=== PATIENT | male | born 1955 | race Caucasian/White ===

== ENCOUNTER 2017-08-20 09:05 | Inpatient (IN) | payer BC ==
[2017-07-28 11:41] VITALS: BMI 31.0
[2017-07-28 12:05] LABS: BASO % 0.5 %; BASO ABS # 0.02 K/uL (0-0.2); COMPLETE YES; EOS % 2.8 %; HEMATOCRIT 41.9 % (42-52); IG% 0.2 %; LYMPH % 25.3 %; MEAN CELL VOLUME 92.5 fL (80-100); MEAN CORPUSCULAR HEMOGLOBIN 31.3 pg (25-34); MEAN CORPUSCULAR HGB CONC 33.9 g/dl (32-36); MEAN PLATELET VOLUME 9.1 fL (7.4-10.4); NEUT % 62.2 %; PLATELET COUNT 175 K/uL (130-400); RED BLOOD COUNT 4.53 M/uL (4.7-6.1); WHITE BLOOD COUNT 4.34 K/uL (4.8-10.8)
--- NOTE | 2017-07-28 12:09 | PAT Medication Instructions ---
Service Date Jul 28, 2017. Current Home Medication List Epinephrine (Epipen), 0.3 MG IM UD PRN for bee stings Levothyroxine Sodium (Levothyroxine Sodium), 1 TAB PO QAM Lisinopril (Zestril), 0.5 TAB PO QAM Medication Instructions For Your Scheduled Surgery - Continue as directed: Epinephrine (Epipen), 0.3 MG IM UD PRN for bee stings - Hold the following medications the morning of surgery: Lisinopril (Zestril), 0.5 TAB PO QAM - Take the following medications the morning of surgery with a sip of water OTHERWISE NOTHING TO EAT OR DRINK AFTER MIDNIGHT: Levothyroxine Sodium (Levothyroxine Sodium), 1 TAB PO QAM If you have any questions please call us at [phone] or [phone] or [phone]
[2017-07-28 12:11] LABS: INR 0.9 (0.9-1.1); PARTIAL THROMBOPLASTIN RATIO 0.9
[2017-07-28 12:14] LABS: BUN/CREATININE RATIO 19.6 (10-20); CALCIUM 8.9 mg/dl (8.5-10.1); POTASSIUM 4.1 mmol/L (3.5-5.1)
--- NOTE | 2017-07-28 12:48 | DIAGNOSTIC IMAGING REPORT ---
TWO VIEW CHEST CLINICAL HISTORY: Preoperative examination. FINDINGS: PA and lateral chest radiographs are obtained. No prior studies are available for comparison at the time of dictation. The cardiomediastinal silhouette is unremarkable. The lungs and pleural spaces are clear. There is no pneumothorax. The bony thorax appears intact. Mild thoracic scoliosis is observed. IMPRESSION: No active disease in the chest. Electronically signed by: Phong Barclay M.D. 07/28/2017 12:47 PM Dictated Date/Time: 07/28/2017 12:46 PM
[2017-07-28 13:19] LABS: URINE APPEARANCE CLEAR (CLEAR); URINE BILIRUBIN NEG (NEG); URINE COLOR YELLOW; URINE NITRITE NEG (NEG); URINE SPECIFIC GRAVITY 1.022 (1.000-1.030); UROBILINOGEN NEG (NEG)
[2017-07-28 13:37] LABS: MANUAL MICROSCOPIC REQUIRED? NO; REVIEW REQ? NO
--- NOTE | 2017-08-19 07:25 | HISTORY & PHYSICAL EXAMINATION ---
DATE OF ADMISSION: 08/20/2017 CHIEF COMPLAINT: Primary osteoarthritis of the right knee. HISTORY OF PRESENT ILLNESS: Ameya is a pleasant 61-year-old male. He is complaining of several year history of increasing right knee pain. X-rays and clinical examination were diagnostic for primary osteoarthritis of the right knee. After failing years of conservative treatment including injections, anti-inflammatories and therapy, he has elected to proceed with a right total knee arthroplasty. PAST MEDICAL HISTORY: Significant for hypertension and hypothyroidism. PAST SURGICAL HISTORY: Denies. ALLERGIES: BEES. MEDICATIONS: Include Synthroid 25 mcg daily and lisinopril 5 mg daily. FAMILY HISTORY: Denies. SOCIAL HISTORY: He is , has 3 kids, has 1-2 drinks per week and he is very active. REVIEW OF SYSTEMS: He complains of right knee pain. All other pertinent review of systems are negative. PHYSICAL EXAMINATION: GENERAL: He is awake, alert and oriented x3. He is in no apparent distress. He is very pleasant. HEENT: Pupils are equal, round and reactive to light. Extraocular motion intact. Oral mucosa is pink and moist. HEART: Regular rate per radial pulse. LUNGS: Carey symmetrically bilaterally with no audible breath sounds. ABDOMEN: Soft, nontender, nondistended. MUSCULOSKELETAL: On physical examination of his right knee, he ambulates independently. He has trace swelling of the knee. He has good range of motion from 0-130 degrees. He has a lot of pain over the distal medial femoral condyle and over the medial joint line. There is moderate bony hypertrophy around the knee. IMAGING: X-rays of the right knee do show advanced osteoarthritis mostly involving the medial compartment. There is complete loss of joint space and osteophyte formation. IMPRESSION: Primary osteoarthritis of the right knee. PLAN: We will proceed with a right total knee arthroplasty. Postoperatively, he will be started on aspirin for DVT prophylaxis. He will likely stay in the hospital for 2 midnights before being discharged to home.
[~2017-08-20] VITALS: Ht 177.8 cm; Wt 98.9 kg
[2017-08-20] MEDS: TRANEXAMIC ACID INJ 1,000 MG in SYRINGE 0 ML IV SCH ×2 (06:30→11:21)
[~2017-08-20 09:05] MED LIST: ACETAMINOPHEN 500 MG TAB PO SCH; ATROPINE SULFATE 0.1 MG/ML 5ML SYR IV PRN; BUPIVACAINE 0.25% 30 ML VIAL ONE; BUPIVACAINE 0.5 % 5 MG/1 ML PF 10ML VIAL ONE; CEFAZOLIN 2000MG IV PUSH 10 ML IV SCH; EPP3/2 IM; EpHEDrine SULFATE INJ 50 MG/ML AMP IV PRN; FAMOTIDINE 20 MG TAB PO SCH; FENTANYL CITRATE INJ 50 MCG/1 ML 2 ML VIAL IV PRN; GABAPENTIN 300 MG CAP PO SCH; HYDROmorphone INJ 1 MG/ML SYR IV PRN; LACTATED RINGER'S 1000ML 1,000 ML IV SCH; LACTATED RINGER'S 1000ML 500 ML IV ONE; LACTATED RINGER'S 1000ML IV SCH; LEVO25TA5 PO; LISI-461 PO; ONDANSETRON INJ 2 MG/ML 2 ML VIAL IV PRN; PROMETHAZINE HCL INJ 12.5 MG in SODIUM CHLORIDE 0.9% 50ML 50 ML IV PRN; ROPIVACAINE 5MG/ML 30 ML 150 MG, BUPIVACAINE 0.5% MPF INJ 30 ML, EpINEphrine HCL INJ 0.... INFIL SCH
--- NOTE | 2017-08-20 09:25 | History & Physical Bridge Note ---
H&P Re-Evaluation Bridge Note: I have examined the patient, reviewed the History & Physical and in the interval since the performance of the History & Physical I have noted the following changes of clinical significance: No changes noted
[2017-08-20 09:36] VITALS: O2SAT 100; Ht 177.8 cm; Wt 98.9 kg
[2017-08-20] MEDS ORDERED: FENTANYL CITRATE INJ 50 MCG/1 ML 2 ML VIAL ONE (10:52)
[2017-08-20] MEDS ORDERED: MIDAZOLAM HCL 1 MG/ML 2ML VIAL ONE ×2 (10:52→12:31)
[2017-08-20] MEDS ORDERED: ORTHO JOINT ANESTHETIC ONE (12:04)
[2017-08-20] MEDS ORDERED: BACITRACIN 50000 UNIT VIAL ONE (12:04)
[2017-08-20] MEDS ORDERED: ONDANSETRON INJ 2 MG/ML 2 ML VIAL ONE (12:49)
[2017-08-20] MEDS ORDERED: PROPOFOL IV EMULSION 10 MG/ML 20 ML VIAL IV ONE (13:13)
--- NOTE | 2017-08-20 13:54 | [facility] Post Operative Brief Note ---
Immediate Operative Summary Operative Date Aug 20, 2017. Pre-Operative Diagnosis Right Knee Degenerative Joint Disease Post-Operative Diagnosis Same as preop Procedure(s) Performed Right Total Knee Arthroplasty Surgeon Dr. Hernandez Credit Operations Processor Surgeon(s) Luis Guzmán PA-C Estimated Blood Loss 20 ml Findings as above Specimens A. Right Knee Bone and Tissue Complication(s) None Disposition Recovery Room / PACU
[2017-08-20] MEDS ORDERED: EPINEPHRINE ADULT AUTO-INJECT 0.3 MG SYR IM PRN (14:00)
[2017-08-20] MEDS ORDERED: METOCLOPRAMIDE HCL INJ 5 MG/ML 2 ML VIAL IV PRN (14:00)
[2017-08-20] MEDS ORDERED: SOD PHOSPHATE/SOD BIPHOSPHATE ENEMA 132 ML BTL PR PRN (14:00)
[2017-08-20] MEDS ORDERED: MoRPHine SULFATE 2 MG/ML CARP IV PRN (14:00)
[2017-08-20] MEDS ORDERED: MAGNESIUM HYDROXIDE SUSP 30 ML UDC PO PRN (14:00)
[2017-08-20] MEDS ORDERED: ONDANSETRON INJ 2 MG/ML 2 ML VIAL IV PRN (14:00)
[2017-08-20] MEDS ORDERED: BISACODYL 10 MG SUPP PR PRN (14:00)
--- NOTE | 2017-08-20 14:45 | DIAGNOSTIC IMAGING REPORT ---
RIGHT KNEE 2 VIEWS History: Right total knee arthroplasty. Degenerative arthritis. Postop. FINDINGS: The patient is status post a right total knee arthroplasty. The hardware is intact. No fracture or dislocation. Skin paul and surgical drains are in place. IMPRESSION: Right total knee arthroplasty. No evidence for hardware complication. Electronically signed by: Ra Man M.D. 08/20/2017 2:43 PM Dictated Date/Time: 08/20/2017 2:42 PM
--- NOTE | 2017-08-20 15:15 | Anesthesiology Progress Note ---
Anesthesia Post Op Note Date & Time Aug 20, 2017 at 15:14 Vital Signs Pain Intensity: 0 Vital Signs Past 12 Hours Date Time Temp Pulse Resp B/P (MAP) Pulse Ox O2 Delivery O2 Flow Rate FiO2 08/20/17 15:00 72 18 123/82 99 Nasal Cannula 2 08/20/17 14:45 36.4 60 15 131/82 97 Nasal Cannula 2 08/20/17 14:35 73 16 145/76 99 Nasal Cannula 2 08/20/17 14:25 63 16 134/79 100 Oxymask 10 08/20/17 14:15 36.8 67 14 114/69 98 Oxymask 10 08/20/17 09:36 100 Room Air Notes Mental Status: alert / awake / arousable, participated in evaluation Pt Amnestic to Procedure: Yes Nausea / Vomiting: adequately controlled Pain: adequately controlled Airway Patency, RR, SpO2: stable & adequate BP & HR: stable & adequate Hydration State: stable & adequate Neuraxial Anesthesia: was administered, sensory block is resolving Anesthetic Complications: no major complications apparent
[2017-08-20 15:45] VITALS: BP 148/92; PULSE 69; TEMP 36.6; O2SAT 96
--- NOTE | 2017-08-20 16:03 | OPERATIVE REPORT ---
DATE OF OPERATION: 08/20/2017 PREOPERATIVE DIAGNOSIS: Primary osteoarthritis of the right knee. POSTOPERATIVE DIAGNOSIS: Same. PROCEDURE: Right total knee arthroplasty. SURGEON: Dr. Nathan Hernandez. EMT: Luis Guzmán PA-C, whose assistance was necessary for retraction and closure. ANESTHESIA: Spinal with a right adductor nerve block. COMPLICATIONS: None. CONDITION: Stable to PACU. IMPLANTS USED: I used a [employer] Vanguard right total knee arthroplasty system with a size 70 femur, a 75 tibia, a size 10 posterior stabilized poly and a 34 x 8.5 mm patella. All components were cemented with Palacos-G cement. INDICATIONS: Ameya is a pleasant 61-year-old male who presented to my office with chronic right knee pain. X-rays and clinical examination were diagnostic for primary osteoarthritis of the right knee. After failing conservative treatment, he elected to undergo a joint replacement. DESCRIPTION OF OPERATION AND FINDINGS: On 08/20/2017, he arrived at [facility] for the above procedure. He was seen in the preoperative holding area and the operative extremity was identified and signed. He was given a preoperative antibiotic, a spinal anesthetic and a right adductor nerve block. He was taken back to the operating room, laid on the table in supine position and put under basic sedation. The right knee was then prepped and draped in sterile fashion. Time-out was done and the patient and operative extremity was properly identified. A longitudinal incision was made directly over the patella. Dissection was taken down through the fascia and a medial parapatellar arthrotomy was used. The fat pad was left intact, the medial retinaculum was released and the knee was flexed. ACL and PCL and meniscus were then removed. A drill was then sent down the center of femoral canal, followed by an intramedullary janae. Off that janae, a distal femoral cutting block was placed. A 12 mm was resected off the distal femur at 5 degrees of valgus. A posterior referencing guide was then used to measure the distal femur and it measured to be a size 70. Two drill holes were placed in 3 degrees of external rotation and 4 in 1 cutting block was placed. Anterior, posterior and chamfer cuts were then made. A box cutting guide was then placed and the box was resected for the posterior stabilizing component. The proximal tibia was then exposed. A drill was sent down the center of the tibial canal followed by an intramedullary janae. Off the janae, a proximal tibial resection guide was placed and 2 mm was resected off the low medial side. The tibia measured to be a size 75, it was set in the appropriate rotation, drilled and then punched. The posterior aspect of the knee was then opened up and any soft tissue remnants were removed as well as any posterior osteophytes. Trial components were then placed, the knee was brought through a full range of motion and felt to be stable. The patella was then everted and 9 mm was resected off the posterior aspect of the patella. The patella measured to be a size 34 and 3 peg hole drills were placed. A trial patella was placed, the knee was brought through a full range of motion and felt to be stable. Trial complements removed. The knee was then irrigated and the final components were then cemented in place with Palacos-G cement. The surrounding soft tissues were then injected with 100 mL of orthopedic pain control cocktail. The joint was irrigated with 3 liters of normal saline solution with bacitracin. Two drains were placed. The extensor mechanism was closed with #2 FiberWire suture in the superior medial aspect and a Vicryl suture, both proximally and distally. The skin was then closed with 2-0 Vicryl, 3-0 V-Loc suture and paul. He was then placed in a soft compressive dressing and taken to the postanesthesia care unit in stable condition. He tolerated the procedure well. I attest to the content of the Intraoperative Record and any orders documented therein. Any exception s are noted below.
--- NOTE | 2017-08-20 16:05 | Discharge Instructions ---
Discharge Instructions Date of Service Aug 20, 2017. Admission Reason for Admission: Right Knee Degenerative Joint Disease Discharge Discharge Diagnosis / Problem: Right Total Knee Discharge Goals Goal(s): Decrease discomfort, Improve function Activity Recommendations Activity Limitations: as noted below . Instructions / Follow-Up Instructions / Follow-Up Activity and Therapy Recommendations: * If you are using [facility] then Physical Therapy will be provided until they feel you are ready to start Outpatient Physical Therapy. If you are not using a Home Health agency then Outpatient Physical Therapy should start about 3-5 days from your day of surgery. Therapy will last about 6-10 weeks * It is important not to put a pillow under your knee when you are relaxing or sleeping. It is just as important to make sure you are getting your knee perfectly straight as it is to regain your knee bend. * You were shown a series of exercises in the hospital. Do these exercises three times each day including the exercises you were shown in physical therapy. * Get up and walk several times each day. For the first four weeks, try not to stand or walk for more than one hour at a time. If you do stand or walk for more than one hour, you will not hurt anything, but your leg will likely swell. * As you feel comfortable, you may change from the walker or crutches to a cane and then to independent walking. Medications: * Narcotic You will likely be sent home from the hospital with a prescription for the narcotic pain medication that worked best throughout your stay. * Aspirin Most patients will be required to take Aspirin 325mg twice a day for 6 weeks after surgery. This is obtained [id number] and a prescription is not necessary. * Other medications may be prescribed for specific circumstances. If you have any questions, please call the office at . * Resume previous home medications unless otherwise instructed TEDs/Elastic Stockings: The white elastic stockings help limit swelling and prevent blood clots from forming in your legs.~ The more you wear them, the more they work. Wear them for six weeks. Showering: You may shower 5 days from the day of surgery. Let the soapy shower water run over the paul. Do not scrub or soak the incision. Things To Watch For: * Drainage from the incision site that occurs more than one week after your surgery. * Increased redness at the incision site. * Fever above 102 degrees Fahrenheit. * Unusual chest pain or shortness of breath. * Call [facility] at with any of the above problems Follow-Up Visit: Follow-up with Dr. Hernandez 2 weeks after your day of surgery. An appointment was probably scheduled when you signed-up for surgery in the office. If you have any questions call Office Instructions: More detailed instructions as well as Frequently Asked Questions were provided in a folder by our office when you signed-up for surgery. Please review these instructions when you get home. If you have any further questions or concerns, please feel free to call the office at [phone] Current Hospital Diet Patient's current hospital diet: Regular Diet Discharge Diet Recommended Diet: Regular Diet Procedures Procedures Performed: Right Total Knee Arthroplasty Pending Studies Studies pending at discharge: no Medical Emergencies . Who to Call and When: Medical Emergencies: If at any time you feel your situation is an emergency, please call [phone] immediately. . Non-Emergent Contact Non-Emergency issues call your: Surgeon Call Non-Emergent contact if: wound has increased drainage, wound has increased redness . "Provider Documentation" section prepared by Nathan Hernandez. . VTE Core Measure Inpt VTE Proph given/why not?: Other Anticoagulation (Aspirin 325 twice a day for 6 weeks)
[2017-08-20 16:15] VITALS: BP 145/88; PULSE 59; TEMP 36.7; O2SAT 97
[2017-08-20 17:15] VITALS: BP 157/95; PULSE 69; TEMP 36.7; O2SAT 100
[2017-08-20 18:26] VITALS: BP 157/94; PULSE 73; TEMP 36.6; O2SAT 100
[2017-08-20] MEDS: SODIUM CHLORIDE 0.9% 1000ML 1,000 ML IV SCH (19:21)
[2017-08-20] MEDS: ACETAMINOPHEN IV 1,000 MG in EMPTY BAG 0 ML IV SCH (19:22)
[2017-08-20] MEDS: KETOROLAC TROMETHAMINE 30 MG/ML VIAL IV. SCH (19:23)
[2017-08-20] MEDS: CEFAZOLIN IV 2,000 MG in SYRINGE 0 ML IV SCH (19:44)
[2017-08-20] MEDS ORDERED: SENNA 8.6 MG TAB PO SCH (21:00)
[2017-08-20] MEDS: ASPIRIN 325 MG ECTAB PO SCH (21:39)
[2017-08-20] MEDS: DOCUSATE SODIUM 100 MG CAP PO SCH (21:39)
[2017-08-20 22:50] VITALS: BP 122/72; PULSE 58; TEMP 36.8; O2SAT 98
[2017-08-21] MEDS: ACETAMINOPHEN IV 1,000 MG in EMPTY BAG 0 ML IV SCH ×2 (00:28→07:16)
[2017-08-21] MEDS: KETOROLAC TROMETHAMINE 30 MG/ML VIAL IV. SCH ×3 (00:28→11:37)
[2017-08-21 03:17] VITALS: BP 131/82; PULSE 63; TEMP 36.6; O2SAT 99
[2017-08-21] MEDS: SODIUM CHLORIDE 0.9% 1000ML 1,000 ML IV SCH ×2 (03:34→09:54)
[2017-08-21] MEDS: CEFAZOLIN IV 2,000 MG in SYRINGE 0 ML IV SCH (03:34)
[2017-08-21] MEDS ORDERED: LEVOTHYROXINE 25 MCG TAB PO SCH (06:00)
[2017-08-21 06:06] LABS: HEMATOCRIT 38.2 % (42-52); MEAN CORPUSCULAR HEMOGLOBIN 31.6 pg (25-34); MEAN CORPUSCULAR HGB CONC 34.3 g/dl (32-36); MEAN PLATELET VOLUME 9.2 fL (7.4-10.4); PLATELET COUNT 154 K/uL (130-400); RED BLOOD COUNT 4.15 M/uL (4.7-6.1); WHITE BLOOD COUNT 8.69 K/uL (4.8-10.8)
[2017-08-21 06:39] LABS: BUN/CREATININE RATIO 18.5 (10-20); CALCIUM 8.4 mg/dl (8.5-10.1); CREATININE 0.96 mg/dl (0.60-1.40)
[2017-08-21] MEDS: DOCUSATE SODIUM 100 MG CAP PO SCH (07:16)
[2017-08-21] MEDS: ASPIRIN 325 MG ECTAB PO SCH (07:18)
[2017-08-21] MEDS: OXYCODONE HCL IR 5 MG TAB (IMMEDIATE RELEASE) PO PRN ×2 (07:22→12:38)
[2017-08-21] MEDS ORDERED: RXC5 PO (07:41)
[2017-08-21] MEDS ORDERED: ASPEC325 PO (07:41)
--- NOTE | 2017-08-21 08:02 | PROGRESS NOTE ---
DATE: 08/21/2017 CHIEF COMPLAINT: Status post right total knee arthroplasty, postop day #1. PROGRESS: Ameya was seen and examined at bedside today. Overall, he is doing very well. He has a very little pain in his knee. He has been up and ambulating to the bathroom. He has no other complaints. PHYSICAL EXAMINATION: RIGHT KNEE: He is lying with his knee in full extension. He has active dorsiflexion and plantarflexion of his right ankle and sensation is intact throughout. The drain has been pulled because it stopped suction and the dressing is clean and dry. LABORATORY DATA: He has an H&H today of 13.1 and 38.2. His glucose is 112. His vital signs are all stable on room air. He is voiding on his own. X-rays postoperatively of the right knee show the prosthesis to be in anatomical alignment without any evidence of fracture, dislocation or loosening. IMPRESSION: Status post right total knee arthroplasty, postop day #1. PLAN: At this point, he is doing well. He is on aspirin for DVT prophylaxis. He will be seen by physical therapy today. If he is feeling well later this afternoon, he can be discharged to home on oral pain medications.
[2017-08-21 08:20] VITALS: BP 163/103; PULSE 82; TEMP 36.8; O2SAT 98
[2017-08-21] MEDS ORDERED: MULTIVITAMIN TAB PO SCH (09:00)
[2017-08-21] MEDS ORDERED: LISINOPRIL 5 MG TAB PO SCH (09:00)
[2017-08-21 10:31] VITALS: BP 163/103; PULSE 82; TEMP 36.8; O2SAT 98
--- NOTE | 2017-08-22 09:47 | DISCHARGE SUMMARY ---
DISCHARGE DIAGNOSIS: Primary osteoarthritis of the right knee. PROCEDURE: Right total knee arthroplasty on 08/20/[address] Nathan Hernandez. DISCHARGE INSTRUCTIONS: 1. Aspirin 325 mg twice a day for 6 weeks. 2. NIXON hose stockings for 6 weeks. 3. Oxycodone 5-10 mg every 4 hours as needed for pain. 4. May shower 5 days from the day of surgery. 5. Start physical therapy this week. 6. Follow up with Dr. Hernandez in 2 weeks. 7. Call the office of Dr. Hernandez with any questions or concerns. 8. Continue Synthroid 25 mcg daily. 9. Continue Zestril 5 mg daily. HOSPITAL COURSE: Ameya is a pleasant 61-year-old male who presented to my office with chronic right pain. X-rays and clinical examination were diagnostic for primary osteoarthritis of the right knee. After failing extensive conservative treatment, he elected to undergo a right total knee arthroplasty. On 08/20/2017, he arrived at [facility] and underwent a right knee replacement without complication. He had a spinal anesthetic and a right adductor nerve block. Postoperatively, he was started on aspirin 325 mg twice a day for DVT prophylaxis and discharged to general orthopedic floor. His hospital course was uneventful. On postop day #1, his H&H was stable at 13.1 and 38.2. His pain was well controlled. He was able to participate well with physical therapy. Later in the afternoon, he was feeling well. So, he was subsequently discharged to home with oral pain medications, aspirin and the above instructions.
== END 2017-08-21 12:41 | disposition home health service (06) | DRG 470 ==
LOC: C.ACU 09:05 → C.3E 09:45 → ENRESERV 14:56
PROVIDERS: ADMIT Orthopaedic Surgery; ATTEND Orthopaedic Surgery
PROC: 0SRC0J9 Replacement of Right Knee Joint with Synthetic Substitute, Cemented, Open Approach (ICD-10-PCS; principal; 2017-08-20 11:30)
DX: M17.11 Unilateral primary osteoarthritis, right knee (principal); I10 Essential (primary) hypertension; E03.9 Hypothyroidism, unspecified; Z79.899 Other long term (current) drug therapy

== ENCOUNTER 2024-04-10 09:06 | Inpatient (IN) ==
--- NOTE | 2024-03-13 10:55 | PAT Medication Instructions ---
Medication Instructions Date of Service March 13, 2024 Home Medications acetaminophen 500 mg tablet 500 mg PO Q6H PRN hydrochlorothiazide 12.5 mg tablet 12.5 mg PO QAM ibuprofen 200 mg tablet 600 mg PO BID PRN levothyroxine 25 mcg tablet 25 mcg PO QAM lisinopril 40 mg tablet 40 mg PO QAM omeprazole 20 mg capsule,delayed release 20 mg PO DAILY PRN Continue as directed omeprazole 20 mg capsule,delayed release 20 mg PO DAILY PRN(if needed) ASK your surgeon for instructions ibuprofen 200 mg tablet 600 mg PO BID PRN DO NOT take the morning of surgery hydrochlorothiazide 12.5 mg tablet 12.5 mg PO QAM lisinopril 40 mg tablet 40 mg PO QAM Take morning of surgery With a small sip of water, OTHERWISE NOTHING TO EAT OR DRINK AFTER MIDNIGHT: acetaminophen 500 mg tablet 500 mg PO Q6H PRN(if needed) levothyroxine 25 mcg tablet 25 mcg PO QAM Take evening before surgery acetaminophen 500 mg tablet 500 mg PO Q6H PRN(if needed) Other Notes If you have any questions please call us at [phone] or [phone] or [phone] or [phone]
--- NOTE | 2024-03-16 08:26 | Anesthesiology Consultation ---
Date of Service March 16, 2024 Assessment & Plan (1) Encounter for pre-operative examination: - Case discussed in detail with Dr. Martell who advised nothing additional needed prior to surgery. Chart Review Chart Review: Acceptable Risk for Surgery and Patient seen in Pre Admission Testing Teaching & Discussion Pre-Anesthesia Teaching/Discussion Notes: Instructed NPO after midnight before surgery, except medications with 15 cc of water. Medication instructions provided according to the PAT guidelines. History Surgery Operation Date: 04/10/24 12:00 Proposed Procedures p Revision Right Total Knee Arthroplasty - Nathan Hernandez DO Height/Weight Height: 5 ft 10 in Weight: 99.9 kg Allergies Allergy/AdvReac Type Severity Reaction Status Date / Time No Known Drug Allergies Allergy Unknown Verified 03/13/24 07:40 BEE STINGS Allergy Unknown passed out Uncoded 03/13/24 07:40 with a multiple sting event Medications Home Medications Medication Instructions Recorded Confirmed Last Taken acetaminophen 500 mg tablet 500 mg PO Q6H PRN Pain 03/13/24 03/13/24 Unknown hydrochlorothiazide 12.5 mg tablet 12.5 mg PO QAM 03/13/24 03/13/24 Unknown ibuprofen 200 mg tablet 600 mg PO BID PRN Pain 03/13/24 03/13/24 Unknown levothyroxine 25 mcg tablet 25 mcg PO QAM 03/13/24 03/13/24 Unknown lisinopril 40 mg tablet 40 mg PO QAM 03/13/24 03/13/24 Unknown omeprazole 20 mg capsule,delayed 20 mg PO DAILY PRN Heartburn 03/13/24 03/13/24 Unknown release Past Medical History Medical History (Updated 03/16/24 @ 08:30 by Marylu Merino PA-C) GERD (gastroesophageal reflux disease) controlled, stable per pt Hx MRSA infection (2021) left arm wound post op ORIF Hx of colonic polyps Hypertension controlled, stable per pt Hypothyroidism Osteoarthritis Patient denies h/o stroke, seizures, heart attack, heart failure, DM, blood clots/DVTs or blood transfusions. Exercise / Class Metabolic Activity II 4-5 Yardwork/Stairs/Walk up hill (denies chest discomfort or shortness of breath with one flight of stairs) Past Family History Family History Other No family history of adverse response to anesthesia Past Surgical History Surgical History History of colonoscopy History of open reduction and internal fixation (ORIF) procedure (2021) left arm with hardware History of tonsillectomy History of total right knee replacement (TKR) (07/2017) S/P debridement (2021) wound vac placement Past Anesthesia History No Hx of Anesthesia Complications and No Family Hx of Anesthesia Complications History of PONV No Hx of PONV and Hx of Motion Sickness Social History Smoking Status: Never smoker Do You Dip or Chew Tobacco: No Hx Alcohol Use: Yes alcohol intake frequency: a few times a month Hx Substance Use: No substance use type: does not use Review of Systems Occasional snoring, denies witnessed apneas. Patient denies chest pain, shortness of breath, dyspnea on exertion, fever, chills, cough, wheezing, or palpitations. Physical Exam Vital Signs Vitals BP 143/83 P 62 TEMP 98.6 SP02 98% on RA RESP 18 Physical Patient resting comfortably in chair in no acute distress, alert and oriented, responding appropriately throughout visit Full cervical extension range of motion without pain TMD 3.5 finger breadths Mallampati Score 2 Dentition: several caps/crowns and several permanent bridges, denies chipped or loose teeth Lungs: normal respiratory effort. Good air movement, clear throughout to auscultation, no adventitious breath sounds Cardiac: regular rate and rhythm, no murmurs noted Carotid arteries: negative bruit bilat Lab Results Anesthesia Preop Results Results Anesthesia Widget: WBC 3.86 K/ul (4.8-10.8) L 03/16/24 Hgb 12.2 g/dl (14.0-18.0) L 03/16/24 Hct 38.3 % (42.0-52.0) L 03/16/24 Plt 203 K/uL (130-400) 03/16/24 Na 140 mmol/L (136-145) 03/16/24 K 4.3 mmol/L (3.5-5.1) 03/16/24 Cl 105 mmol/L (98-107) 03/16/24 CO2 28 mmol/L (21-32) 03/16/24 BUN 27 mg/dl (6-23) H 03/16/24 Creat 1.27 mg/dl (0.6-1.4) 03/16/24 Glucose Level 96 mg/dl (70-99(Fasting)) 03/16/24 PT 10.3 Seconds (9.0-12.0) 03/16/24 PTT 23 Seconds (21-31) 03/16/24 INR 0.9 (0.9-1.1) 03/16/24 Blood Type A Negative 03/16/24 Antibody Screen NEGATIVE 03/16/24 Testing Electrocardiogram Date: 03/16/24 NSR, rate [address] and T wave abnormality T wave inversion now evident in inferior leads Chest X-Ray Date: 03/16/24 No acute cardiopulmonary findings.
--- NOTE | 2024-04-06 12:40 | History & Physical Report ---
Date of Service April 06, 2024 Assessment & Plan (1) Aseptic loosening of prosthetic knee: We will proceed with a revision right knee replacement. Postoperatively he will be started on aspirin for DVT prophylaxis and kept overnight in the hospital for postop medical management. He plans to use [facility] upon discharge. History of Present Illness Chief Complaint: Aseptic loosening right knee. Primary Care Provider: NO PCP Ameya is a pleasant 68-year-old male who underwent a right knee replacement in 2017. He always had a little issues with it postoperatively. He had a few effusions. He would do well for a while and then it would hurt some. 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 Unfortunately, over the last year, he has developed more and more of a varus deformity of his knee and increase in effusion. X-rays and clinical examination of the diagnostic for aseptic loosening of the right knee. After failing conservative treatment, he has elected to proceed with a right revision knee replacement surgery. Allergies Allergy/AdvReac Type Severity Reaction Status Date / Time bee venom protein (honey bee) Allergy Unknown passed out Verified 04/06/24 06:42 with a multiple sting event No Known Drug Allergies Allergy Unknown Verified 03/13/24 07:40 Home Medications Medication Instructions Recorded Confirmed Type acetaminophen 500 mg tablet 500 mg PO Q6H PRN Pain 03/13/24 03/13/24 History hydrochlorothiazide 12.5 mg tablet 12.5 mg PO QAM 03/13/24 03/13/24 History ibuprofen 200 mg tablet 600 mg PO BID PRN Pain 03/13/24 03/13/24 History levothyroxine 25 mcg tablet 25 mcg PO QAM 03/13/24 03/13/24 History lisinopril 40 mg tablet 40 mg PO QAM 03/13/24 03/13/24 History omeprazole 20 mg capsule,delayed 20 mg PO DAILY PRN Heartburn 03/13/24 03/13/24 History release Past Med/Surg History Problem List Encounter for pre-operative examination Aseptic loosening of prosthetic knee Knee effusion, right Osteoarthritis of left knee Medical History GERD (gastroesophageal reflux disease) controlled, stable per pt Osteoarthritis Hypothyroidism Hypertension controlled, stable per pt Hx of colonic polyps Hx MRSA infection (2021) left arm wound post op ORIF Surgical History History of tonsillectomy History of colonoscopy S/P debridement (2021) wound vac placement History of open reduction and internal fixation (ORIF) procedure (2021) left arm with hardware History of total right knee replacement (TKR) (07/2017) Family History Other No family history of adverse response to anesthesia Social History Smoking Status: Never smoker Second Hand Exposure: No; Do You Dip or Chew Tobacco: No; Hx Alcohol Use: Yes Hx Substance Use: No Preferred Language: Urdu Communication Ability: Effective Payroll Accounting Clerk Required: No Beliefs That Will Affect Care: None Current Living Situation: Spouse Feels Safe at Home: Yes Assistive Devices: None Review of Systems All systems reviewed & are unremarkable except as noted in HPI & below. Physical Exam Physical examination of the right knee shows a significant varus deformity. He has pain along the medial joint line. Significant laxity.. Constitutional WD/WN, vitals as above Eyes PERRL, conjunctivae normal, anicteric sclerae ENMT external ear and nose normal, oropharynx normal Neck trachea midline, no thyromegaly Respiratory normal respiratory effort Cardiovascular RRR, no murmur, no edema Gastrointestinal (Abdomen) normal bowel sounds, soft, nontender, no hepatosplenomegaly Psychiatric A+Ox3, euthymic affect Results & Data Results & Data Laboratory Results . Diagnostic Findings X-rays of the right knee do show medial sided collapse of the tibial plateau. There is loosening of the tibial component.. PG Care Time/CCT Total # of Minutes Spent Total Time Spent with Patient: Total time spent is greater than 50% in coordination of care (as documented) at patient's floor/unit and/or counseling patient: Coding Level of Care Code None Diagnoses Aseptic loosening of prosthetic knee T84.038A; Z96.659
[~2024-04-10 09:06] MED LIST changes: -ACETAMINOPHEN 500 MG TAB PO SCH; -ATROPINE SULFATE 0.1 MG/ML 5ML SYR IV PRN; -BUPIVACAINE 0.25% 30 ML VIAL ONE; +BUPIVACAINE 0.25% PF 30 ML VIAL ONE; -CEFAZOLIN 2000MG IV PUSH 10 ML IV SCH; -EPP3/2 IM; -EpHEDrine SULFATE INJ 50 MG/ML AMP IV PRN; -FAMOTIDINE 20 MG TAB PO SCH; -FENTANYL CITRATE INJ 50 MCG/1 ML 2 ML VIAL IV PRN; -GABAPENTIN 300 MG CAP PO SCH; -HYDROmorphone INJ 1 MG/ML SYR IV PRN; -LACTATED RINGER'S 1000ML 1,000 ML IV SCH; -LACTATED RINGER'S 1000ML 500 ML IV ONE; -LACTATED RINGER'S 1000ML IV SCH; -LEVO25TA5 PO; -LISI-461 PO; -ONDANSETRON INJ 2 MG/ML 2 ML VIAL IV PRN; -PROMETHAZINE HCL INJ 12.5 MG in SODIUM CHLORIDE 0.9% 50ML 50 ML IV PRN; -ROPIVACAINE 5MG/ML 30 ML 150 MG, BUPIVACAINE 0.5% MPF INJ 30 ML, EpINEphrine HCL INJ 0.... INFIL SCH
[2024-04-10] MEDS: LR 500ML BOLUS, THEN 15ML/HR IV SCH (10:24)
[2024-04-10] MEDS: LR 60ML/HR IV SCH (10:24)
[2024-04-10] MEDS: ACETAMINOPHEN 500 MG TAB PO SCH ×2 (10:24→21:34)
[2024-04-10] MEDS: dexAMETHasone**PF** 10 MG/ML VIAL IV SCH (10:24)
[2024-04-10] MEDS: FAMOTIDINE 20 MG TAB PO SCH (10:24)
[2024-04-10] MEDS: GABAPENTIN 300 MG CAP PO SCH (10:29)
--- NOTE | 2024-04-10 11:40 | History & Physical Bridge Note ---
Date of Service April 10, 2024 History & Physical Bridge Note I have examined the patient, reviewed the History & Physical and in the interval since the performance of the History & Physical I have noted the following changes of clinical significance: no changes noted
[2024-04-10] MEDS ORDERED: fentaNYL citrate PF 100 MCG/2 ML VIAL ONE (12:12)
[2024-04-10] MEDS ORDERED: MIDAZOLAM HCL 1 MG/ML 2ML VIAL ONE (12:12)
[2024-04-10] MEDS: TRANEXAMIC ACID 1,000 MG **IV Pre-op IV SCH (12:27)
[2024-04-10] MEDS: ceFAZolin 2000MG 2,000 MG/15 ML SYR IV SCH ×2 (12:42→21:33)
[2024-04-10] MEDS ORDERED: ONDANSETRON INJ 2 MG/ML 2 ML VIAL IV PRN ×2 (12:51→16:56)
[2024-04-10] MEDS ORDERED: ePHEDrine sulfate 50 MG/ML AMP IV PRN (12:51)
[2024-04-10] MEDS ORDERED: ATROPINE SULFATE 0.1 MG/ML 10ML SYR IV PRN (12:51)
[2024-04-10] MEDS ORDERED: fentaNYL citrate PF 100 MCG/2 ML VIAL IV PRN (12:51)
[2024-04-10] MEDS ORDERED: PROPOFOL IV EMULSION 10 MG/ML 20 ML VIAL IV ONE ×4 (13:04→15:00)
[2024-04-10] MEDS ORDERED: ONDANSETRON INJ 2 MG/ML 2 ML VIAL ONE (13:04)
[2024-04-10] MEDS ORDERED: ePHEDrine sulfate 50 MG/ML AMP ONE (13:04)
[2024-04-10] MEDS: ROPIV 0.5% 246mg, Ketorolac 30mg, EPINEPHrine 0.5mg in NSS INFIL SCH (13:08)
[2024-04-10] MEDS ORDERED: PHENYLEPHRINE 100MCG/ML 10ML SYR IV ONE (13:30)
[2024-04-10] MEDS: TRANEXAMIC ACID 1,000 MG **IV Intra-op IV SCH (14:58)
[2024-04-10] MEDS: ORTHO JOINT ANESTHETIC ONE (14:59)
--- NOTE | 2024-04-10 15:21 | Operative Report ---
PG Post Operative Report Pre & Post Diagnosis Operation Date: 04/10/24 12:00 Pre-Op Diagnosis: Aseptic loosening right total knee arthroplasty Post-Op Diagnosis: Aseptic loosening Right Total Knee Arthroplasty I identified the patient and participated in the time-out.: Yes Procedure Operation Date: 04/10/24 12:00 Actual Procedures p Revision Right Total Knee Arthroplasty both femoral and tibial components. (Right) - Nathan Hernandez DO Surgeon Nathan Hernandez DO Water Plant Pump Operator Supervisor Nathan Johnson PA-C Estimated Blood Loss 30 Findings Consistent with Post-Op Diagnosis Specimens None Description of Procedure On April 10, 2024 Ameya arrived at [facility] for the above procedure. He was seen in the preoperative holding area and the operative extremity identified and signed. He was given a preoperative antibiotic and a spinal anesthetic. He was taken back to the operative room and laid on table supine position. He was given basic sedation. The right knee was then prepped and draped sterile fashion. A timeout was done. The patient and the operative extremity was properly identified. The previous midline incision was opened back up. Dissection was taken down through the fascia. A medial parapatellar arthrotomy was used. Scar tissue was removed from the medial lateral gutters. The medial retinaculum was released off the proximal tibia. The knee was then flexed. There was a fracture of the anterior medial tibial plateau. It did not seem to extend beyond the metaphyseal region. The tibial component was grossly loose. The femoral component was not loose. The polyethylene insert was then removed. The femur was exposed. Osteotomes were used to loosen the cement mantle around the femoral component and a slaphammer was used to remove the femoral component. Fortunately there was not much bone loss with the removal of the femoral component. The tibia was then exposed. The tibial component was then easily removed. Remnants of cement were then removed from the tibial canal. The wound was then irrigated. Sequential reaming of the tibia up to a size 11 reamer was done. Off that reamer a proximal tibial resection guide was placed. 2 mm resected off the low medial side. A trial size EE tibia was then placed. I set it in the appropriate rotation with a 6 mm offset. Once I was happy with the overall alignment the tibial fins were marked and a tilt reamer was used for the offset. The tibial pins were then punched and the final tibial trial was then impacted into place. Medial and lateral 10 mm augments were placed. The tibia component was then removed. The tibia was then exposed. Sequential reaming up to a size 14 reamer was done. A size 9 mm femur seem to be the best fit. A 9 mm cutting block was placed with a 3 mm offset from the femoral stem. Anterior posterior chamfer cuts were then made. The femoral component trial was assembled on the back table and impacted on the distal femur. The tibial component was then placed. A 16 mm polyethylene CCK implant was then used. The knee was brought through full range of motion and felt to be stable. All trial components were then removed. The final size E tibial component with a 11 x 135 mm stem and a 6 mm offset with bilateral 10 mm augments was then cemented into place. A size 9 femur with a 14 mm x 135 mm stem and a 3 mm offset was then cemented into place. Once cement had dried a 16 mm CCK implant was then snapped into place and the screw was tightened. The knee was brought through full range of motion and felt to be stable. A 3-minute Betadine lavage was done. Surrounding soft tissues were injected with the 100 cc of an orthopedic pain control cocktail. The tourniquet was deflated and hemostasis was obtained. The extensor mechanism was closed with #1 Vicryl. Skin was closed with 2-0 Vicryl, 3 oh V-Loc sutures, and paul. He was placed in a soft compressive dressing. He was then taken to the postanesthesia care unit in stable condition. He tolerated the procedure well. Nathan Johnson PA-C, was present for the entire procedure. He was critical for patient positioning, prepping, draping, retraction exposure, wound closure and application of sterile dressing. I attest to the content of the Intraoperative Record and any orders documented therein. Any exceptions are noted below.
--- NOTE | 2024-04-10 15:50 | Anesthesiology Progress Note ---
Date of Service April 10, 2024 Anesthesia Post Procedure Vital Signs Vital Signs: Temp Pulse Pulse Resp BP BP Pulse Ox 04/10/24 15:40 81 15 137/65 97 04/10/24 15:33 36.3 C L 86 17 119/84 96 04/10/24 10:03 36.8 C 85 15 122/89 97 O2 Del Method 04/10/24 15:40 Room Air 04/10/24 15:33 Room Air 04/10/24 10:03 Room Air Transfer of Care Handoff Completed per policy Notes Mental Status: alert / awake / arousable and participated in evaluation Patient Amnestic to Procedure: Yes Nausea / Vomiting: adequately controlled Pain: adequately controlled Airway Patency, RR, SpO2: stable & adequate BP & HR: stable & adequate Hydration State: stable & adequate Neuraxial Anesthesia: was administered and sensory block is resolving Anesthetic Complications: no major complications apparent and Pt Satisfied with anesthetic care
--- NOTE | 2024-04-10 15:55 | XRay Report ---
XR knee RT 1 or 2V routine CLINICAL HISTORY: Surgical Post Op COMPARISON STUDY: Right knee 08/20/2017. FINDINGS: Status post revision of a long stemmed right total knee arthroplasty. The hardware appears intact. No fracture or dislocation. Skin paul are in place. IMPRESSION: Right total knee arthroplasty. No evidence for hardware complication. ACT 112: Negative or not required by law. Electronically signed by: Ra Man M.D. 04/10/2024 3:53 PM
[2024-04-10] MEDS ORDERED: bisacodyL 10 MG SUPP PR PRN (16:56)
[2024-04-10] MEDS ORDERED: IBUPROFEN 600 MG TAB PO PRN (16:56)
[2024-04-10] MEDS ORDERED: oxyCODONE HCL IR 5 MG TAB (IMMEDIATE RELEASE) PO PRN (16:56)
[2024-04-10] MEDS ORDERED: NALOXONE HCL 0.4 MG/1 ML VIAL/CARP IV PRN (16:56)
[2024-04-10] MEDS ORDERED: METOCLOPRAMIDE HCL INJ 5 MG/ML 2 ML VIAL IV PRN (16:56)
[2024-04-10] MEDS ORDERED: MAGNESIUM HYDROXIDE SUSP 30 ML UDC PO PRN (16:56)
[2024-04-10] MEDS ORDERED: HYDROmorphone INJ 0.5 MG/0.5 ML SYR IV PRN (16:56)
[2024-04-10] MEDS: SODIUM CHLORIDE 0.9% 1,000 ML IV SCH (17:03)
[2024-04-10] MEDS ORDERED: PANTOprazole 40 MG TAB PO PRN (17:05)
[2024-04-10 17:14] VITALS: RESP 16
[2024-04-10] MEDS: KETOROLAC 30 MG/ML VIAL IV SCH (17:31)
[2024-04-10] MEDS: DOCUSATE SODIUM 100 MG CAP PO SCH (21:34)
[2024-04-10] MEDS: SENNA 8.6 MG TAB PO SCH (21:34)
[2024-04-10] MEDS: ASPIRIN 81 MG ECTAB PO SCH (21:35)
[2024-04-11] MEDS: LEVOTHYROXINE SODIUM 25 MCG TABLET PO SCH (05:58)
--- NOTE | 2024-04-11 06:59 | Orthopedic Progress Note ---
Date of Service April 11, 2024 Assessment & Plan (1) Status post revision of total replacement of right knee: Overall he is doing fairly well. He is not having much pain in the right hip. He will be seen by physical therapy today for ambulation and range of motion exercises. The nursing staff can change his dressing after physical therapy. He is on aspirin for DVT prophylaxis. He can be discharged to home later today. He will follow-up with orthopedics in 2 weeks. Adolfo Hou was seen and examined at bedside this morning. Overall he is doing very well. He is not having much pain in the right knee. He has been up and ambulating to the bathroom. He has no complaints.. Review of Systems All systems reviewed & are unremarkable except as noted in HPI & below. Physical Exam On physical examination of the right knee, the dressing is clean and dry. His leg is out full extension. He has active dorsiflexion plantarflexion of the right ankle.. Results & Data Results & Data Laboratory Results . Diagnostic Findings Postoperative x-rays of the right knee show the prosthesis to be in anatomic alignment without any evidence of fracture complication, or loosening.. PG Care Time/CCT Total # of Minutes Spent Total Time Spent with Patient: Total time spent is greater than 50% in coordination of care (as documented) at patient's floor/unit and/or counseling patient: Coding Level of Care Code 46196 Post Operative Follow-Up Diagnoses Status post revision of total replacement of right knee Z96.651
--- NOTE | 2024-04-11 07:00 | Discharge Summary ---
Date of Service April 11, 2024 Admission HPI (Per Admitting) Ameya is a pleasant 68-year-old male who underwent a right knee replacement in 2017. He always had a little issues with it postoperatively. He had a few effusions. He would do well for a while and then it would hurt some. 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 Unfortunately, over the last year, he has developed more and more of a varus deformity of his knee and increase in effusion. X-rays and clinical examination of the diagnostic for aseptic loosening of the right knee. After failing conservative treatment, he has elected to proceed with a right revision knee replacement surgery. Admission Exam (Per Admitting) Physical examination of the right knee shows a significant varus deformity. He has pain along the medial joint line. Significant laxity.. Principal Diagnosis Same as "Discharge Diagnosis" noted below under Discharge Instructions. Discharge Exam On physical examination of the right knee, the dressing is clean and dry. His leg is out full extension. He has active dorsiflexion plantarflexion of the right ankle.. Discharge Data Procedures Performed Operation Date: 04/10/24 12:00 Actual Procedures p Revision Right Total Knee Arthroplasty(Right) - Nathan Hernandez DO Ordered Studies 04/10/24 05:00 US - OR guided needle placemen Routine Hospital Course (1) Status post revision of total replacement of right knee: On April 10, 2024 Ameya arrived at [facility] and underwent a revision right knee replacement without complication. He had a spinal anesthetic. Postoperatively he was started on aspirin for DVT prophylaxis and transferred to the general orthopedic floors. His hospital course was uneventful. On postop day #1, his vital signs were stable and his pain was well-controlled. He was able to participate well with physical therapy doing ambulation and range of motion exercises. He was then discharged to home. He will follow-up with orthopedics in 2 weeks. PG Care Time/CCT Total # of Minutes Spent Total Time Spent with Patient: Total time spent is greater than 50% in coordination of care (as documented) at patient's floor/unit and/or counseling patient: Discharge Plan Discharge Items Reason For Visit: Painful Loosening Right Total Knee Arthroplasty Discharge Diagnosis: Revision right knee replacement Activity: Per Instructions section Non-emergency contact: Surgeon Call non-emergency contact if: your wound has increased redness and your wound has increased drainage Follow-up/Referrals: Kamaljit Gordillo PA-C [Primary Care Provider] - Diet: Regular Addtl Attending Provider Instructions: Activity and Therapy Recommendations: * If you are using [facility] then therapy will be provided at your home until they feel you have accomplished all of your goals. * If you are using [facility] then Physical Therapy will be provided until they feel you are ready to start Outpatient Physical Therapy. * If you are not using home therapy then Outpatient Physical Therapy should start about 3-5 days from your day of surgery. Therapy will last about 6-10 weeks * It is important not to put a pillow under your knee when you are relaxing or sleeping. It is just as important to make sure you are getting your knee perfectly straight as it is to regain your knee bend. * You were shown a series of exercises in the hospital. Do these exercises three times each day including the exercises you were shown in physical therapy. * Get up and walk several times each day. For the first four weeks, try not to stand or walk for more than one hour at a time. If you do stand or walk for more than one hour, you will not hurt anything, but your leg will likely swell. * As you feel comfortable, you may change from the walker or crutches to a cane and then to independent walking. Medications: * Narcotic You will likely be sent home from the hospital with a prescription for the narcotic pain medication that worked best throughout your stay. * Cefadroxil -take the antibiotic twice a day for 10 days to help prevent infection. * Aspirin Most patients will be required to take Aspirin 81mg twice a day for 6 weeks after surgery. This is obtained [id number] and a prescription is not necessary. * Other medications may be prescribed for specific circumstances. If you have any questions, please call the office at . * Resume previous home medications unless otherwise instructed TEDs/Elastic Stockings: The white elastic stockings help limit swelling and prevent blood clots from forming in your legs.~ The more you wear them, the more they work. Wear them for six weeks. Dressing Care: The dressing can be changed after physical therapy on postop day #1. Daily dry dressing changes for a few days, especially if the incision is still draining some. If the incision is not draining then you may leave the paul open to air. If there is a little bit of drainage or if the paul are getting stuck on your clothing then cover the incision with a dry dressing. The paul will be removed at your 2 week follow-up appointment. Showering: You may shower 5 days from the day of surgery as long as the incision is no longer draining. You may shower with the paul exposed. Let soapy water run over the paul and pat them dry. Do not scrub or soak the incision. Things To Watch For: * Drainage from the incision site that occurs more than one week after your surgery. * Increased redness at the incision site. * Fever above 102 degrees Fahrenheit. * Unusual chest pain or shortness of breath. * Call [facility] at with any of the above problems Follow-Up Visit: Follow-up with Dr. Hernandez's PA (Nathan Johnson) 2-3 weeks after your day of surgery. He will remove your paul and answer any questions. If you have any additional questions or concerns, Dr Hernandez is usually in the office at the same time and will be available An appointment was probably scheduled when you signed-up for surgery in the office. If you have any questions call Office Instructions: More detailed instructions as well as Frequently Asked Questions were provided in a folder by our office when you signed-up for surgery. Please review these instructions when you get home. If you have any further questions or concerns, please feel free to call the office at [phone] Pending Studies at Discharge: No Stand-Alone Forms: My [facility] Medications and DC Order Prescriptions: New cefadroxil 500 mg capsule 500 mg PO BID 10 Days Qty: 20 0RF oxycodone-acetaminophen 5-325 mg tablet 1 tab PO Q6H PRN (Reason: pain) Qty: 30 0RF aspirin 81 mg Tablet,Delayed Release (Dr/Ec) 81 mg PO BID 42 Days Qty: 84 0RF Continued levothyroxine 25 mcg Tablet 25 mcg PO QAM omeprazole 20 mg Capsule,Delayed Release(Dr/Ec) 20 mg PO DAILY PRN (Reason: Heartburn) lisinopril 40 mg Tablet 40 mg PO QAM hydrochlorothiazide 12.5 mg Tablet 12.5 mg PO QAM acetaminophen 500 mg Tablet 500 mg PO Q6H PRN (Reason: Pain) ibuprofen 200 mg Tablet 600 mg PO BID PRN (Reason: Pain) Admission Data Admit Date/Time: 04/10/24 15:33 Attending Provider: Nathan Hernandez Admit Provider: Nathan Hernandez Primary Care Provider: Kamaljit Gordillo
[2024-04-11 07:31] VITALS: BP 168/91; PULSE 72; TEMP 97.7; O2SAT 99
[2024-04-11] MEDS: hydroCHLOROthiazide 25 MG TAB PO SCH (09:20)
[2024-04-11] MEDS: dexAMETHasone 4 MG TAB PO SCH (09:21)
[2024-04-11] MEDS: lisinopril 40 MG TAB PO SCH (09:21)
[2024-04-11] MEDS: MULTIVITAMIN TAB PO SCH (09:21)
--- OUTSIDE RECORDS SUMMARY | 2024-04-11 17:22 | External Medical Summary | Summary of Care ---
Author Name Unknown Organization [facility] Address [address] [place] [address] Phone [phone] Care Team Providers Care Boat Outfitting Supervisor Name Role Phone Kamaljit Gordillo PA-C Primary Care Provider Reason for Visit * Reason Onset Date Comments Endoscopy Recall 04/06/2024 LM 04/06/24-Sched ule colon Appointment 04/10/2024 Lm Encounter Details Date Type Department Care Team (Late st Contact Info) Description 04/06/2024 Telephone [facility] [address] [place] [address] Jewell Castillo, Florencio Toledo MD [address] [place] [address] Endoscopy Recall (LM 04/06/24-Schedule colon... Allergies Active Allergy Reactions Criticality Noted Date Comments Bee Venom Hypotension High 03/28/2019 No airway issues , feet tingling documented as of this encounter (statuses as of 04/10/2024) Medications Medication Sig Dispensed Refills Start Date End Date Status lisinopril (PRINIVIL) 10 MG Tablet 10 mg. Active documented as of this encounter (statuses as of 04/10/2024) Social History Tobacco Use Types Packs/Day Years Used Date Smoking Tobacco: Never Smokeless Tobacco: Never Alcohol Use Standard Drinks/Week Comments Yes 0 (1 standard drink = 0.6 oz pur e alcohol) Utilities Answer Date Recorded Do you have trouble paying y our heating, water, or electric bill? (Adult - for ages 18 years and over) Not on file 02/15/2024 Is your family able to pay t he heat, water, or electric bill? (Household - for ages 0-17 years) Not on file 02/15/2024 Does your family have access to good internet? (Household - for ages 0-17 years) Not on file 02/15/2024 Social Connections Answer Date Recorded How often do you feel lonely or isolated from those around you? (Adult - for ages 18 years and over) Not on file 02/15/2024 Sex and Gender Information Value Date Recorded Sex Assigned at Not on file Gender Identity Not on file Sexual Orientation Not on file Job Start Date Occupation Industry Not on file Not on file Not on file documented as of this encounter Miscellaneous Notes * Telephone Encounter - Pina Grossman OSA - 04/10/2024 9:34 AM EDT Returned pt's call- pt on recall for 05/2024 * Telephone Encounter - Jessica Parikh OSA - 04/07/2024 4:20 PM EDT Pt returned call and would like to schedule. * Telephone Encounter - Arlette Lorenzo LPN - 04/06/2024 10:14 AM EDT Left message on voicemail for pt to call us back to schedule colon. Last colon 06/02/2019-repeat 5 yrs GEM Prep Adequate documented in this encounter Plan of Treatment Health Maintenance Due Date Last Done Comments Depression Screening 1968 Hepatitis C Screening 1974 Cologuard 2001 Fecal Occult Blood Test 2001 Sigmoidoscopy 2001 Zoster Vaccines (1 of 2) 2006 Pneumococcal Vaccine: 65+ Years (1 of 1 - PCV) 2021 COVID-19 Vaccine (2 - 2022-2 4 season) 2023 11/09/2020 Lipid Panel 03/17/2024 03/17/2019, 03/16/2018 Influenza Vaccine (FLU shot) (#1) 2024 Colonoscopy 06/02/2029 06/02/2019 Colorectal Cancer Screening 06/02/2029 DTaP,Tdap,and Td Vaccines (4 - Td or Tdap) 09/28/2031 09/28/2021, 03/18/2020, 09/30/1992 HPV (Gardasil) Vaccine Aged Out No lo nger eligible based on patient's age to complete this topic Hepatitis B Vaccine Aged Out No longe r eligible based on patient's age to complete this topic MENINGOCOCCAL (MENACTRA/MENVEO) Aged Out No longer eligible b ased on patient's age to complete this topic documented as of this encounter Medical Devices Not on filedocumented as of this encounter Care Teams Boat Outfitting Supervisor Relationship Specialty Start Date End Date Kamaljit Gordillo PA-C PCP - General Physician Advertising Operations Manager 03/28/19 documented as of this encounter
--- OUTSIDE RECORDS SUMMARY | 2024-04-11 17:22 | External Medical Summary | Summary of Care ---
Author Name Unknown Organization [facility] Address [address] [place] [address] Phone [phone] Care Team Providers Care Landscape Manager Name Role Phone Kamaljit Gordillo PA-C Primary Care Provider Reason for Visit * Reason Onset Date Comments Appointment 04/10/2024 04/10 Colonosc opy Encounter Details Date Type Department Care Team (Late st Contact Info) Description 04/06/2024 [facility] [address] [place] [address] Florencio Corcoran Jr., MD [address] [place] [address] Appointment ( 04/10 Colonoscopy ) Allergies Active Allergy Reactions Criticality Noted Date [...] filedocumented as of this encounter Care Teams Landscape Manager Relationship Specialty Start Date End Date Kamaljit Gordillo PA-C PCP - General Physician Gold Blower 03/28/19 documented as of this encounter
== END 2024-04-11 11:42 | disposition home or self-care (01) | DRG 468 ==
LOC: 3E 09:06 → ASU 09:06 → OBSVTOIN 15:33